=== PATIENT | female | born 1960 | race Caucasian/White ===

== ENCOUNTER 2017-09-23 21:33 | Inpatient (IN) | payer OTHER ==
[~2017-09-23] VITALS: Ht 157.5 cm; Wt 43.9 kg
[~2017-09-23 21:33] MED LIST: MESA250 PO; OMEP20TA PO; PHEN12.5 PR; PRED5TAB PO; ZOFR4TAB3 SL
[2017-09-23 21:34] VITALS: BP 169/79; PULSE 102; RESP 20; TEMP 98.1; O2SAT 100
[2017-09-23] MEDS ORDERED: IOHEXOL 350 MG/ML 10 ML VIAL (for RAD DIAG) IVCONTRAST ONE (21:34)
[2017-09-23] MEDS ORDERED: SODIUM CHLOR 0.9% 1000 ML INJ 1,000 ML IV ONE (22:00)
[2017-09-23] MEDS ORDERED: ONDANSETRON HCL 4 MG/2 ML VIAL IV ONE (22:00)
--- NOTE | 2017-09-23 22:14 | PD ---
HPI Chief Complaint: Abdominal Pain Time Seen by Provider: 21:50 Travel History International Travel<30 days: No Contact w/Intl Traveler<30days: No Traveled to known affect area: No History of Present Illness HPI The patient is a 56 year old female who presents to the [facility] emergency department with a history of abdominal pain that began on and then went away and returned at 2PM on today. Her last meal was at 4 PM. She has had n/v x 5. Her last BM was a small BM earlier today. She has a h/o Crohn' s s/p partial colostomy. Her colorectal surgeon is Dr. Morrow. She has a history of recurrent strictures between the connection of the small intestine and colon s/p dilation last in 2011 or 2012. She reports that the abdominal pain is generalized throughout the abdomen and feels sharp. She reports that the pain is intermittent and is associated with the bloated gassy sensation. On review of systems otherwise, the patient denies having any neck pain, chest pain, shortness of breath, or neurologic symptoms. She reports that today she has had urinary frequency and urgency without dysuria. She reports that over the last 3 days she has had an occasional cough productive of yellow sputum. She reports that today she has had a subjective fever. [facility] Past Medical History Narrative Medical The patient's past medical history is significant for skin cancer, Crohn's disease, arthritis, recurrent small bowel obstructions Arthritis: Yes Cancer: No Cardiovascular Problems: Yes (HEART MURMUR) Chemotherapy: Yes (topical chemo/chest) Diabetes: No Endocrine: No Gastrointestinal Disorders: Yes (chrons) Genitourinary: No Hepatitis: No Hiatal Hernia: No Hypertension: No Immune Disorder: No Implanted Vascular Access Dvce: No Medical other: Yes (CROHNS) Neurologic: No Psychiatric: No Reproductive: No Respiratory: No Immunizations Current: Yes Thyroid Disease: No Tetanus Vaccination: Never Vaccinated Influenza Vaccination: Yes ?: Not Menopausal: Yes Past Surgical History Narrative Surgical The patient's past surgical history is significant for a partial colectomy, cholecystectomy, appendectomy. Abdominal Surgery: Yes (colectomy) Other Surgery: Yes (GALLBLADDER, COLON SURGERY, APPENDECTOMY) Social History Alcohol Use: Yes (1-2 x per week) Tobacco Use: Yes (1/2-1 ppd) Substance Use: No Allergies-Medications (Allergen,Severity, Reaction): Coded Allergies: Sulfa (Sulfonamide Antibiotics) (Unverified Allergy, Mild, 09/23/17) codeine (Unverified Allergy, Mild, 09/23/17) Reported Meds & Prescriptions Reported Meds & Active Scripts Active Phenergan (Promethazine HCl) 12.5 Mg Sup 12.5 Mg AZ Q6H PRN FOR NAUSEA Zofran ODT (Ondansetron HCl) 4 Mg Tab 4 Mg SL Q6H PRN FOR NAUSEA/VOMITING Reported Prednisone 5 Mg Tab 5 Mg PO DIRECTED 40 mg daily taper down by 5 mg every week then stop Omeprazole 20 mg (Omeprazole) 20 Mg Tab 20 Mg PO DIRECTED Pentasa 250 mg (Mesalamine) 250 Mg Cap 200 Mg PO BID Mercaptopurine, Lomotil, Crestor, Hormone supplement. Dr. Michele Dover Review of Systems Except as stated in HPI: all other systems reviewed are Neg General / Constitutional: No: Fever Eyes: No: Visual changes HENT: No: Headaches Cardiovascular: No: Chest Pain or Discomfort Respiratory: No: Shortness of Breath Gastrointestinal: Positive: Nausea, Vomiting, Abdominal Pain, No: Diarrhea, Changes in Bowel Habits Genitourinary: No: Dysuria Musculoskeletal: No: Pain Skin: No Rash Neurologic: No: Weakness Psychiatric: No: Depression Endocrine: No: Polydipsia Hematologic/Lymphatic: No: Easy Bruising Physical Exam Narrative General: The patient is a well-developed well-nourished female in no acute distress. Head and Neck exam: Head is normocephalic atraumatic. Eyes: EOMI, pupils are equal round and reactive to light. Nose: Midline septum with pink mucous membranes Mouth: Dentition unremarkable. Moist mucus membranes. Posterior oropharynx is not erythematous. No tonsillar hypertrophy. Uvula midline. Airway patent. Neck: No palpable lymphadenopathy. No nuchal rigidity. No thyromegaly. Cardiovascular: Regular rate and rhythm without murmurs, gallops, or rubs. Lungs: Clear to auscultation bilaterally. No wheezes, rhonchi, or rales. Abdomen: Soft, with tenderness on palpation that is worse in the midepigastric area and area just above the umbilicus. No other tenderness on palpation of the other quadrants abdomen. No guarding, rebound, or rigidity. Decreased bowel sounds are audible. No tenderness on palpation of McBurney's point. Negative Huerta' s sign. Extremities: No clubbing, cyanosis, or edema. 2+ pulses in all 4 extremities. No calf tenderness on palpation. Back: No costovertebral angle tenderness to palpation. Neurologic Exam: Grossly nonfocal. Skin Exam: No rash noted. Intact skin that is warm and dry. Data Data Last Documented VS Vital Signs Date Time Temp Pulse Resp B/P (MAP) Pulse Ox O2 Delivery O2 Flow Rate FiO2 09/23/17 21:34 98.1 102 20 169/79 (109) 100 Room Air Orders Orders Electrocardiogram (09/23/17 21:53) Complete Blood Count With Diff (09/23/17 21:53) Comprehensive Metabolic Panel (09/23/17 21:53) C-Reactive Protein (Crp) (09/23/17 21:53) Lipase (09/23/17 21:53) Urinalysis - C+S If Indicated (09/23/17 21:53) Westergren Sedimentation Rate (09/23/17 21:53) Chest, Single Ap (09/23/17 21:53) Ct Abd/Pel W Iv Contrast(Rout) (09/23/17 21:53) Iv Access Insert/Monitor (09/23/17 21:53) Ecg Monitoring (09/23/17 21:53) Oximetry (09/23/17 21:53) Ed Urine Pregnancytest Poc (09/23/17 21:53) Sodium Chlor 0.9% 1000 Ml Inj (Ns 1000 M (09/23/17 22:00) Ondansetron Inj (Zofran Inj) (09/23/17 22:00) Ondansetron Odt (Zofran Odt) (09/24/17 00:00) Iohexol 350 Inj (Omnipaque 350 Inj) (09/23/17 21:34) Piperacil-Tazo 3.375 Gm Premix (Zosyn 3. (09/24/17 01:30) Hydromorphone Pf Inj (Dilaudid Pf Inj) (09/24/17 01:30) Admit Order (Ed Use Only) (09/24/17 01:25) Diet Npo (09/24/17 Breakfast) Labs Laboratory Tests Test 09/24/17 00:00 09/24/17 00:02 White Blood Count 14.6 TH/MM3 Red Blood Count 4.12 MIL/MM3 Hemoglobin 14.8 GM/DL Hematocrit 44.5 % Mean Corpuscular Volume 108.0 FL Mean Corpuscular Hemoglobin 36.0 PG Mean Corpuscular Hemoglobin Concent 33.3 % Red Cell Distribution Width 16.5 % Platelet Count 356 TH/MM3 Mean Platelet Volume 9.6 FL Neutrophils (%) (Auto) 80.7 % Lymphocytes (%) (Auto) 11.9 % Monocytes (%) (Auto) 6.5 % Eosinophils (%) (Auto) 0.6 % Basophils (%) (Auto) 0.3 % Neutrophils # (Auto) 11.8 TH/MM3 Lymphocytes # (Auto) 1.7 TH/MM3 Monocytes # (Auto) 0.9 TH/MM3 Eosinophils # (Auto) 0.1 TH/MM3 Basophils # (Auto) 0.0 TH/MM3 CBC Comment DIFF FINAL Differential Comment Erythrocyte Sedimentation Rate 9 mm/hr Blood Urea Nitrogen 15 MG/DL Creatinine 0.76 MG/DL Random Glucose 76 MG/DL Total Protein 6.9 GM/DL Albumin 3.5 GM/DL Calcium Level 10.5 MG/DL Alkaline Phosphatase 94 U/L Aspartate Amino Transf (AST/SGOT) 27 U/L Alanine Aminotransferase (ALT/SGPT) 33 U/L Total Bilirubin 0.6 MG/DL Sodium Level 141 MEQ/L Potassium Level 3.9 MEQ/L Chloride Level 106 MEQ/L Carbon Dioxide Level 28.2 MEQ/L Anion Gap 7 MEQ/L Estimat Glomerular Filtration Rate 79 ML/MIN C-Reactive Protein 1.21 MG/DL Lipase 88 U/L MDM Medical Decision Making Medical Screen Exam Complete: Yes Emergency Medical Condition: Yes Medical Record Reviewed: Yes Differential Diagnosis Recurrent bowel obstruction, versus gastroenteritis, versus viral syndrome versus gastroparesis, versus Crohn's exacerbation Narrative Course During the course of the patients emergency department visit, the patients history, examination, and differential diagnosis were reviewed with the patient. The patient was placed on a manager monitoring with oximetry and frequent blood pressure monitoring. The patient had IV access obtained and blood work sent for analysis. The patient had an ECG done on arrival that shows a sinus rhythm heart rate of 77, no acute ST segment elevation or depression. The patient was initially provided normal saline IV fluids, hydromorphone 0.5 mg IV for pain, Zofran for nausea. The patients laboratory studies were reviewed and remarkable for a white count of 14.6, hemoglobin 14.8, platelets 356 with 80.7 neutrophils, sedimentation rate is 9. CMP is remarkable for a GFR of 79, calcium 10.5, C-reactive protein 1.21, lipase 88 Radiology studies were reviewed and remarkable for CT scan of the abdomen and pelvis that shows a suspected small bowel stricture with dilatation of the mid and distal small bowel with a transition point just proximal to the anastomosis between the small bowel and rectum. The patient's case was discussed with the patient's colorectal surgeon, Dr. Morrow. He did agree to admit the patient for continued evaluation and treatment. The patients results were discussed with the patient, including the plan of care. I explained that further testing and/ or monitoring is indicated based on the patients history, examination, and/ or laboratory findings. Therefore, I recommended admission for additional evaluation. The patient expressed understanding and was agreeable with this plan. The patient was admitted to the hospital in stable condition and sent to a bed under the care of Dr. Morrow. Physician Communication Physician Communication The patient's case including history, pertinent physical examination findings, and laboratory studies were discussed with Dr. Morrow. It was agreed that the patient would be admitted to Dr. Morrow's service. Diagnosis Primary Impression: Small bowel obstruction Admitting Information Admitting Physician Requests: it Ashley Daugherty MD Sep 23, 2017 22:14
--- NOTE | 2017-09-23 22:14 | RADRPT ---
EXAM DATE/TIME: 09/23/2017 22:06 [facility] COMPARISON: No previous studies available for comparison. INDICATIONS : Upper abdominal and lower chest pain. MEDICAL HISTORY : Crohn's disease. Heart murmur. SURGICAL HISTORY : Colon resection. ENCOUNTER: Initial ACUITY: 3 days PAIN SCORE: 5/10 LOCATION: Bilateral upper abdomen and lower chest. FINDINGS: A single view of the chest demonstrates no focal consolidation or effusion. Heart size normal. No pne umothorax. CONCLUSION: No acute disease. Elton Floyd MD on September 23, 2017 at 22:11 Board Certified Radiologist. This report was verified electronically.
[2017-09-24] VITALS (8 sets, daily range): BP systolic 129–162; BP diastolic 58–75; PULSE 69–79; RESP 16–20; TEMP 98–99; O2SAT 93–97
[2017-09-24] MEDS ORDERED: ONDANSETRON ODT 4 MG TAB PO ONE
[2017-09-24 00:14] LABS: AUTOMATED NEUTROPHIL # 11.8 TH/MM3 (1.8-7.7); BASOPHIL % 0.3 % (0.0-2.0); EOSINOPHIL # 0.1 TH/MM3 (0-0.4); EOSINOPHIL % 0.6 % (0.0-4.0); HEMATOCRIT 44.5 % (35.0-46.0); HEMO FLAGS DIFF FINAL; LYMPH % 11.9 % (9.0-44.0); LYMPHOCYTE # 1.7 TH/MM3 (1.0-4.8); MEAN CORPUSCULAR HGB CONC 33.3 % (32.0-36.0); MONO % 6.5 % (0.0-8.0); NEUT % 80.7 % (16.0-70.0); PLATELET COUNT 356 TH/MM3 (150-450); RED BLOOD COUNT 4.12 MIL/MM3 (4.00-5.30); RED CELL DISTRIBUTION WIDTH 16.5 % (11.6-17.2); WHITE BLOOD COUNT 14.6 TH/MM3 (4.0-11.0)
[2017-09-24 00:27] LABS: ALT (GPT) 33 U/L (10-53); ANION GAP 7 MEQ/L (5-15); AST (GOT) 27 U/L (15-37); BICARBONATE 28.2 MEQ/L (21.0-32.0); BLOOD UREA NITROGEN 15 MG/DL (7-18); CHLORIDE 106 MEQ/L (98-107); GLOMERULAR FILTRATION RATE 79 ML/MIN (>89); POTASSIUM 3.9 MEQ/L (3.5-5.1); SODIUM (NA) 141 MEQ/L (136-145)
[2017-09-24 00:29] LABS: ALKALINE PHOSPHATASE 94 U/L (45-117); TOTAL BILIRUBIN ADULT 0.6 MG/DL (0.2-1.0)
--- NOTE | 2017-09-24 01:14 | RADRPT ---
EXAM DATE/TIME: 09/24/2017 00:42 [facility] COMPARISON: CHEST SINGLE AP, September 23, 2017, 22:06. CT ABDOMEN & PELVIS W CONTRAST, December 25, 2011, 6:32. CT ABDOMEN & PELVIS W CONTRAST, December 27, 2015, 5:51. INDICATIONS : Abdomen pain with nausea and vomiting. IV CONTRAST: 70 cc Omnipaque 350 (iohexol) IV ORAL CONTRAST: No oral contrast ingested. RADIATION DOSE: 4.51 CTDIvol (mGy) MEDICAL HISTORY : Cardiovascular disease. Crohns disease. SURGICAL HISTORY : Cholecystectomy. Appendectomy.Colon resection. ENCOUNTER: Initial ACUITY: 1 day PAIN SCALE: 8/10 LOCATION: Bilateral abdomen TECHNIQUE: Volumetric scanning of the abdomen and pelvis was performed. Using automated exposure control and ad justment of the mA and/or kV according to patient size, radiation dose was kept as low as reasonably achievable to obtain optimal diagnostic quality images. DICOM format image data is available electro nically for review and comparison. FINDINGS: LOWER LUNGS: The visualized lower lungs are clear. LIVER: There is mild decreased attenuation to the liver without lesion. There is dilation of the biliary tr ee. The patient is status post cholecystectomy.. SPLEEN: There is a 1.4 cm and nonspecific focal splenic lesion. This hypodense lesion was present on the prio r CT examination. PANCREAS: There are calcifications seen at the pancreatic head and uncinate region. KIDNEYS: There are low density masses seen the kidneys bilaterally measuring 1.5 cm the posterior mid right ki dney and 0.7 cm at the superior lateral left kidney. No hydronephrosis is seen. ADRENAL GLANDS: Within normal limits. VASCULAR: There is no aortic aneurysm. Atherosclerotic calcifications are seen. BOWEL/MESENTERY: The stomach and proximal small bowel are unremarkable. There is dilatation of the mid and distal smal l bowel. There is anastomosis suture in the right lower quadrant. It appears the patient is status po st colectomy with the rectum remaining in place. The anastomosis appears between the small bowel and the upper rectum. There appears to be an area of focal small bowel thickening seen just proximal to t he bowel anastomosis suture concerning for a transition point. ABDOMINAL WALL: Within normal limits. RETROPERITONEUM: There is no lymphadenopathy. BLADDER: No wall thickening or mass. REPRODUCTIVE: Within normal limits. INGUINAL: There is no lymphadenopathy or hernia. MUSCULOSKELETAL: Within normal limits for patient age. CONCLUSION: 1. Suspected small bowel structure with dilatation of the mid and distal small bowel with a transitio n point just proximal to the anastomosis between the small bowel and the rectum. 2. Hepatic steatosis. 3. Biliary duct dilatation likely reflecting a reservoir phenomenon follicle cystectomy. 4. Calcifications of the pancreatic head and uncinate process typically seen with chronic pancreatiti s. 5. Low density masses in the kidneys bilaterally likely related to cysts. 6. Atherosclerotic calcifications seen throughout. Rashawn Pugh MD on September 24, 2017 at 0:57 Board Certified Radiologist. This report was verified electronically.
[2017-09-24] MEDS ORDERED: PIPERACIL-TAZO 3.375 GM PREMIX 50 ML IV ONE (01:30)
[2017-09-24] MEDS ORDERED: HYDROmorphone HCL PF 0.5 MG/0.5 ML SYRINGE IV PUSH ONE (01:30)
[2017-09-24] MEDS ORDERED: ESTR1TAB PO (02:15)
[2017-09-24] MEDS ORDERED: AMBI10TA PO (02:15)
[2017-09-24] MEDS ORDERED: ROSU10 PO (02:15)
[2017-09-24] MEDS ORDERED: MEDR10TA7 PO (02:15)
[2017-09-24] MEDS ORDERED: PRED5TAB PO (02:15)
[2017-09-24] MEDS ORDERED: CYMB30CA PO (02:15)
[2017-09-24] MEDS ORDERED: MESA250 PO (02:15)
[2017-09-24] MEDS ORDERED: LORA-392 PO (02:15)
[2017-09-24] MEDS ORDERED: MERC50TA PO (02:15)
[2017-09-24] MEDS ORDERED: LOMO2.5T PO (02:15)
[2017-09-24] MEDS ORDERED: OMEP20TA93 PO (02:15)
[2017-09-24] MEDS ORDERED: ASPI81TA23 PO (02:16)
[2017-09-24 02:36] LABS: BLOOD, URINE MOD (NEG); COMMENT (UR) CULT NOT INDICATED; CULTURE IF INDICATED CULT NOT INDICATED; GLUCOSE,URINE NEG (NEG); KETONE, URINE TRACE mg/dL (NEG); MUCUS URINE FEW /lpf (OCC); NITRITE,URINE NEG (NEG); SQUAMOUS EPITHELIAL CELL URINE 2 /hpf (0-5); URINE COLOR YELLOW (YELLW/STRAW)
[2017-09-24] MEDS ORDERED: ZOLPIDEM TARTRATE 10 MG TAB PO PRN (03:00)
[2017-09-24] MEDS: D5-LR + KCL 20 MEQ INJ 1,000 ML IV SCH ×3 (04:38→23:06)
[2017-09-24] MEDS: ONDANSETRON HCL 4 MG/2 ML VIAL IV PUSH PRN ×3 (05:51→18:38)
[2017-09-24] MEDS: HYDROmorphone HCL PF 0.5 MG/0.5 ML SYRINGE IV PUSH PRN ×5 (05:51→23:06)
--- NOTE | 2017-09-24 08:30 | EKG ---
Date Performed: 09/23/2017 Time Performed: 23:35:25 PTAGE: 56 years EKG: Sinus rhythm NORMAL ECG PREVIOUS TRACING : 07/02/2010 17.42 No significant change from previous tracing noted. DOCTOR: Kahlil Al Interpretating Date/Time 09/24/2017 08:29:00
[2017-09-24] MEDS: PANTOPRAZOLE SOD 20 MG DELAYED RELEASE TAB PO SCH (08:38)
[2017-09-24] MEDS: ATORVASTATIN 20 MG TAB PO SCH (08:39)
[2017-09-24] MEDS: DULoxetine HCl DR 30 MG CAP PO SCH (08:39)
[2017-09-24] MEDS: ESTRADIOL 1 MG TAB PO SCH (08:40)
[2017-09-24] MEDS: MERCAPTOPURINE 50 MG TAB PO SCH (08:43)
[2017-09-24] MEDS: medroxyPROGESTERone ACETATE 10 MG TAB PO SCH (08:44)
[2017-09-24] MEDS ORDERED: predniSONE 5 MG TAB PO SCH (09:00)
[2017-09-24] MEDS ORDERED: MESALAMINE 250 MG CAP PO SCH (09:00)
[2017-09-24] MEDS: REMOVE OLD PATCH T-DERMAL SCH (10:00)
--- NOTE | 2017-09-24 10:17 | MH ---
cc: COMFORT ACE M.D., JOHN T. MD DATE OF ADMISSION 09/24/2017 CHIEF COMPLAINT Nausea, vomiting and abdominal distension. HISTORY OF PRESENT ILLNESS This patient is well-known to me for the last 25 years. She has had a history of Crohn's colitis. She underwent a subtotal colectomy with an ileal rectal anastomosis by me about 25 years ago. She has done well through that time, but has suffered some mild relapses of her Crohn's disease in the terminal ileum just above the anastomosis causing stenosis of her anastomosis at times requiring dilation with balloon dilation. The last balloon dilation done by me was five years ago. She has not had any since then. She does suffer from intermittent bouts of what sounds like small bowel obstruction every two years or so. This latest episode began the day before Thanksgiving. She went out to dinner for her anniversary and developed abdominal discomfort, bloating and lack of bowel motions. She then had multiple bowel motions and it cleared and she had Thanksgiving dinner and after that developed again some crampy abdominal discomfort, but it mostly cleared until last evening prior to this admission. She became quite bloated unable to move her bowels. She does say that she takes Lomotil two pills a day, but did take an extra one a couple of days ago. She came into the emergency department, underwent a CT scan which showed dilatation of her small bowel proximal to her ileosigmoid or ileorectal anastomosis. There was some thickening of the terminal ileum at that anastomosis. Presently she is not passing any gas or stool. She is mildly distended with mild discomfort not severe. She is not having nausea or vomiting at this time. She was made n.p.o. when she was admitted to the hospital. PAST MEDICAL HISTORY, SOCIAL HISTORY AND FAMILY HISTORY, REVIEW OF SYSTEMS Negative other than the HPI. MEDICATIONS For her Crohn's disease include: 1. Mesalamine specifically Pentasa SR 250 mg twice a day 2. Prednisone 5 mg a day 3. Mercaptopurine 50 mg a day PHYSICAL EXAMINATION GENERAL: A well-developed thin female in no acute distress. SKIN: Warm and dry. HEENT: Extraocular muscles intact. NECK: Supple. CHEST: Clear. CARDIAC: S1-S2 is heard. No murmurs or gallops. ABDOMEN: Soft. She is mildly to moderately distended with some tympany and fluid distension of her small bowel. RECTAL: Digital rectal examination was not done. EXTREMITIES: Range of motion within normal limits. NEUROLOGIC: Grossly normal. IMPRESSION Small bowel obstruction due to her stricture of her anastomosis which may be simply a temporary Crohn's stricture and not a fixed stricture. She has had this multiple times in the past and has been followed by me for 25 years with this. PLAN Initially we are placing her at bowel rest, intravenous fluids. I am going to start her on methylprednisolone 40 mg IV twice daily. I am going to increase her Pentasa up to therapeutic dose which is 1000 mg four times a day and I am going to continue her Mercaptopurine. Also, I am going to plan on doing a flexible sigmoidoscopy tomorrow without of prep to see if I can see the area of her anastomosis with a pediatric scope and possibly use a balloon to dilate this area if necessary. This may all clear on its own with adequate Crohn's treatment. Obviously, the last option is a repeat laparotomy which we will try to avoid as we have done over the last 25 years. MD TAO Montez/ARIE /9:56 AM /10:15 AM
[2017-09-24] MEDS: NICOTINE 21 MG/24 HR PATCH T-DERMAL SCH (10:42)
[2017-09-24] MEDS: methylPREDNISolone SOD SUCC 40 MG/1 ML VIAL IV PUSH SCH ×2 (10:42→21:49)
[2017-09-24] MEDS: MESALAMINE 250 MG CAP PO SCH ×3 (12:25→21:49)
[2017-09-25] VITALS: BP 130/63; PULSE 66; RESP 18; TEMP 97.1; O2SAT 94
[2017-09-25 04:00] VITALS: BP 137/66; PULSE 64; RESP 18; TEMP 96.6; O2SAT 94
[2017-09-25 08:00] VITALS: BP 149/70; PULSE 73; RESP 17; TEMP 96.6; O2SAT 93
[2017-09-25] MEDS: REMOVE OLD PATCH T-DERMAL SCH (08:41)
[2017-09-25] MEDS: NICOTINE 21 MG/24 HR PATCH T-DERMAL SCH (08:41)
[2017-09-25] MEDS: ATORVASTATIN 20 MG TAB PO SCH (08:42)
[2017-09-25] MEDS: medroxyPROGESTERone ACETATE 10 MG TAB PO SCH (08:42)
[2017-09-25] MEDS: MESALAMINE 250 MG CAP PO SCH ×4 (08:42→22:00)
[2017-09-25] MEDS: PANTOPRAZOLE SOD 20 MG DELAYED RELEASE TAB PO SCH (08:42)
[2017-09-25] MEDS: DULoxetine HCl DR 30 MG CAP PO SCH (08:42)
[2017-09-25] MEDS: ESTRADIOL 1 MG TAB PO SCH (08:42)
[2017-09-25] MEDS: HYDROmorphone HCL PF 0.5 MG/0.5 ML SYRINGE IV PUSH PRN ×3 (08:42→22:30)
[2017-09-25] MEDS: methylPREDNISolone SOD SUCC 40 MG/1 ML VIAL IV PUSH SCH ×2 (08:43→22:01)
[2017-09-25] MEDS: D5-LR + KCL 20 MEQ INJ 1,000 ML IV SCH ×2 (08:44→17:21)
[2017-09-25] MEDS: MERCAPTOPURINE 50 MG TAB PO SCH (08:55)
--- NOTE | 2017-09-25 09:35 | RADRPT ---
EXAM DATE/TIME: 09/25/2017 08:57 [facility] COMPARISON: CT ABDOMEN & PELVIS W CONTRAST, September 24, 2017, 0:42. INDICATIONS : Partial bowel obstruction with abdominal pain MEDICAL HISTORY : Crohn's disease. SURGICAL HISTORY : Colon resection. ENCOUNTER: Subsequent ACUITY: 3 days PAIN SCORE: 4/10 LOCATION: Abdomen FINDINGS: There is moderate distention of a segment of fairly featureless bowel over the central abdomen. This is likely proximal colon. Minimal intestinal gas elsewhere. There are is no evidence of pneumoperiton eum. No suspicious calcific densities. There are some atherosclerotic vascular calcifications present . Skeletal structures are intact. CONCLUSION: Mild gaseous distention of what appears to be proximal colon Rashawn Thurman MD on September 25, 2017 at 9:14 Board Certified Radiologist. This report was verified electronically.
[2017-09-25 10:40] LABS: AUTOMATED NEUTROPHIL # 8.1 TH/MM3 (1.8-7.7); BASOPHIL % 0.1 % (0.0-2.0); HEMATOCRIT 40.6 % (35.0-46.0); LYMPH % 20.5 % (9.0-44.0); LYMPHOCYTE # 2.3 TH/MM3 (1.0-4.8); MEAN CELL VOLUME 110.6 FL (80.0-100.0); MEAN CORPUSCULAR HEMOGLOBIN 37.5 PG (27.0-34.0); MEAN CORPUSCULAR HGB CONC 33.9 % (32.0-36.0); MONO % 6.4 % (0.0-8.0); PLATELET COUNT 304 TH/MM3 (150-450); RED BLOOD COUNT 3.67 MIL/MM3 (4.00-5.30); WHITE BLOOD COUNT 11.1 TH/MM3 (4.0-11.0)
[2017-09-25 10:48] LABS: HEMO FLAGS AUTO DIFF
[2017-09-25 10:50] LABS: BICARBONATE 25.6 MEQ/L (21.0-32.0); POTASSIUM 4.6 MEQ/L (3.5-5.1)
[2017-09-25 11:26] LABS: BANDS 13 % (0-6); NEUTROPHIL # MANUAL DIFF 9.1 TH/MM3 (1.8-7.7); POLYS (SEG NEUTROPHILS) 69 % (16-70); WBC DIFF SAMPLE 100
[2017-09-25 11:27] LABS: PLATELET ESTIMATE SMEAR NORMAL (NORMAL); PLATELET MORPHOLOGY NORMAL (NORMAL); SCAN/DIFF FINAL DIFF MANUAL
[2017-09-25 12:00] VITALS: BP 157/71; PULSE 81; RESP 17; TEMP 97; O2SAT 92
[2017-09-25] MEDS ORDERED: LIDOCAINE HCL 1% PF 5 ML SYRINGE OTHER ONE (12:00)
[2017-09-25] MEDS ORDERED: PROPOFOL 200 MG/20 ML AMP IV ONE (12:00)
--- NOTE | 2017-09-25 14:08 | HHI.PR ---
Subjective Remarks Stooling. Less distention. Flex Sig with ? stenosis. Large liquid stool precluding good view. Objective Vital Signs Date Time Temp Pulse Resp B/P (MAP) Pulse Ox O2 Delivery O2 Flow Rate FiO2 09/25/17 13:55 71 18 146/76 (99) 92 09/25/17 13:45 98.5 69 18 142/78 (99) 99 09/25/17 12:00 97.0 81 17 157/71 (99) 92 09/25/17 08:00 96.6 73 17 149/70 (96) 93 09/25/17 04:00 96.6 64 18 137/66 (89) 94 09/25/17 00:00 97.1 66 18 130/63 (85) 94 09/24/17 20:00 98.0 69 18 129/67 (87) 94 09/24/17 16:00 98.0 78 17 145/75 (98) 95 I/O 09/24/17 09/24/17 09/24/17 09/25/17 09/25/17 09/25/17 07:00 15:00 23:00 07:00 15:00 23:00 Intake Total 1050 ml 1542 ml 730 ml Balance 1050 ml 1542 ml 730 ml Intake Oral 0 ml 0 ml IV Total 1050 ml 1542 ml 730 ml # Voids 1 8 0 # Bowel Movements 4 0 Result Diagram: 09/25/1794309/25/17943 Objective Remarks VS-S Abd: softer. Assessment and Plan Assessment and Plan Improving Advance diet and D/C in AM 09/26/17 Rashawn Morrow MD Sep 25, 2017 14:08
--- NOTE | 2017-09-25 14:44 | MR ---
cc: LAYNE MORROW ARUN M.D. DATE: 09/25/2017 PREOPERATIVE DIAGNOSIS 1. History of Crohn disease with subtotal colectomy and ileorectal anastomosis. 2. Small bowel obstruction. POSTOPERATIVE DIAGNOSIS Ileorectal anastomosis with resolving small bowel obstruction. PROCEDURE Flexible sigmoidoscopy and biopsy. ANESTHESIA Monitored anesthesia care SURGEON Dr. Morrow OPERATIVE FINDINGS This patient is well-known to me 25 years ago she had a subtotal colectomy with ileorectal anastomosis. She has intermittent small bowel obstruction the last problem she really had was five years ago when her ileal rectal anastomosis was somewhat narrowed a balloon dilatation was done by me. She came in this time with a couple day history of abdominal bloating and cramping and decreased bowel motions. Prior to this procedure, however, she began having copious amounts of liquid stool. At sigmoidoscopy she was found to have a normal appearing rectum and what appeared to be ileocolic anastomosis with stenosis although I could not be absolutely sure up. I could not get this scope up into this small area and it may well simply be a blind pouch but it did seem inflamed and I went ahead and biopsied it. Since her symptoms were improving no further balloon dilation or attempt at placing a balloon adherent with poor prep was recommended. This scope was eventually withdrawn. The patient our procedure well and left the GI lab in good condition. MD TAO Montez/alaina /1:37 PM /2:34 PM
[2017-09-25 16:00] VITALS: BP 162/74; PULSE 76; RESP 17; TEMP 96.7; O2SAT 92
[2017-09-25] MEDS ORDERED: LACTATED RINGER'S 1000 ML IV PRN (22:45)
[2017-09-25 23:28] VITALS: BP 166/72; PULSE 80; RESP 20; TEMP 97; O2SAT 95
[2017-09-26 02:01] VITALS: BP 165/75; PULSE 62; RESP 20; TEMP 97.3; O2SAT 95
[2017-09-26] MEDS: D5-LR + KCL 20 MEQ INJ 1,000 ML IV SCH (03:14)
--- NOTE | 2017-09-26 06:34 | RADRPT ---
EXAM DATE/TIME: 09/26/2017 06:21 [facility] COMPARISON: CT ABDOMEN & PELVIS W CONTRAST, September 24, 2017, 0:42. ABDOMEN FLAT & UPRIGHT, September 25, 2017, 8:57. INDICATIONS : Follow up small bowel obstruction. MEDICAL HISTORY : Crohn's disease. SURGICAL HISTORY : Colon resection. ENCOUNTER: Subsequent ACUITY: 3 days PAIN SCORE: 0/10 LOCATION: Bilateral abdomen FINDINGS: There is air within distended bowel in the left upper quadrant and the midabdomen. There is a small a mount of air seen within the rectal region. Free air is not seen. The lung bases are clear. CONCLUSION: Persistent dilated bowel in the left upper quadrant mid abdomen, persistent low obstruction is suspec bhavna. Rashawn Pugh MD on September 26, 2017 at 6:30 Board Certified Radiologist. This report was verified electronically.
[2017-09-26] MEDS: MESALAMINE 250 MG CAP PO SCH (07:59)
[2017-09-26 08:00] VITALS: BP 146/76; PULSE 64; RESP 18; TEMP 97; O2SAT 96
[2017-09-26] MEDS: ATORVASTATIN 20 MG TAB PO SCH (08:00)
[2017-09-26] MEDS: REMOVE OLD PATCH T-DERMAL SCH (08:00)
[2017-09-26] MEDS: DULoxetine HCl DR 30 MG CAP PO SCH (08:00)
[2017-09-26] MEDS: ESTRADIOL 1 MG TAB PO SCH (08:00)
[2017-09-26] MEDS: PANTOPRAZOLE SOD 20 MG DELAYED RELEASE TAB PO SCH (08:00)
[2017-09-26] MEDS: NICOTINE 21 MG/24 HR PATCH T-DERMAL SCH (08:00)
[2017-09-26] MEDS: methylPREDNISolone SOD SUCC 40 MG/1 ML VIAL IV PUSH SCH (08:00)
[2017-09-26] MEDS: medroxyPROGESTERone ACETATE 10 MG TAB PO SCH (08:00)
[2017-09-26] MEDS: MERCAPTOPURINE 50 MG TAB PO SCH (08:07)
--- NOTE | 2017-09-26 09:13 | HHI.DCPOC ---
Discharge Care Plan Diagnosis: (1) Small bowel obstruction Your Health Problems Are: Anxiety Appetite Changes Irregular Bowel Function Exercise Tolerance Loss of Movements Goals to Promote Your Health * To prevent worsening of your condition and complications * To maintain your health at the optimal level Directions to Meet Your Goals Take your medications as prescribed Follow your dietary instruction Follow activity as directed Keep your appointments as scheduled Take your immunizations and boosters as scheduled If your symptoms worsen call your PCP, if no PCP go to Urgent Care Center or Emergency Room Smoking is Dangerous to Your Health. Avoid second hand smoke Call the 24-hour hour crisis hotline for domestic abuse at Rashawn Morrow MD Sep 26, 2017 09:13
[2017-09-26] MEDS ORDERED: ALVIMOPAN 12 MG CAPSULE PO ONE (09:15)
[2017-09-26] MEDS: HYDROmorphone HCL PF 0.5 MG/0.5 ML SYRINGE IV PUSH PRN (10:20)
== END 2017-09-26 11:27 | disposition home or self-care (01) | DRG 386 ==
LOC: NEPC 21:33 → NEDA 09-24 01:27 → N07B 09-24 03:52
PROVIDERS: ADMIT Colon & Rectal Surgery; ATTEND Colon & Rectal Surgery
PROC: 0DBP8ZX Excision of Rectum, Via Natural or Artificial Opening Endoscopic, Diagnostic (ICD-10-PCS; principal; 2017-09-25 13:10)
DX: K50.812 Crohn's disease of both small and large intestine with intestinal obstruction (principal); K91.89 Other postprocedural complications and disorders of digestive system; Z90.49 Acquired absence of other specified parts of digestive tract
CPT/HCPCS: 71010; 74020; 74177; 80048; 80053; 81001; 83690; 84703; 85007; 85025; 85027; 85652; 86140; 88305; 93005; 96361; 96374; J1170; J2405; J2543; J2920; J3480; J7030; J7512; Q9967

== ENCOUNTER → 2017-11-09 | Outpatient (CLI) | payer OTHER ==
[~2017-11-09] MED LIST changes: +AMBI10TA PO; +ASPI81TA23 PO; +CHLORHEXIDINE GLUCONATE 2 % 1 PACK (2 CLOTHS) TOPICAL PRN; +CYMB30CA PO; +DEXTROSE 5% IN WATE 1000ML INJ 1,000 ML IV SCH; +ESTR1TAB PO; +LACTATED RINGER'S 1000 ML IV PRN; +LORA-392 PO; +MEDR10TA7 PO; +MERC50TA PO; +METOPROLOL TARTRATE 25 MG TAB PO PRN; -OMEP20TA PO; +OMEP20TA93 PO; -PHEN12.5 PR; +POVIDONE IODINE 5% (ANTISEPSIS KIT) 4 APPLICATIONS EACH NARE PRN; +PRED20 PO; -PRED5TAB PO; +PROPOFOL 200 MG/20 ML AMP IV ONE; +ROSU10 PO; +SODIUM CHLORID 0.9% 500 ML IV PRN; -ZOFR4TAB3 SL
[2017-11-09 12:48] VITALS: BP 135/83; PULSE 86; RESP 16; TEMP 98.9; O2SAT 100
[2017-11-09 15:44] VITALS: TEMP 97.8
[2017-11-09 16:07] VITALS: BP 154/92; PULSE 74; RESP 18; O2SAT 100
--- NOTE | 2017-11-10 14:05 | MR ---
cc: COMFORT ACE M.D., JOHN T. M.D. DATE 11/09/2017 PREOPERATIVE DIAGNOSIS Anastomotic stricture. POSTOPERATIVE DIAGNOSIS Anastomotic stricture. PROCEDURE Flexible sigmoidoscopy with dilation of ileorectal anastomotic stricture. ANESTHESIA Monitored anesthesia care. SURGEON Dr. Morrow ESTIMATED BLOOD LOSS Minimal. OPERATIVE FINDINGS This patient had a subtotal colectomy for Crohn's colitis 26 years ago. She had an ileorectal anastomosis at that time and since that time she has done quite well, although she occasionally has obstruction of this ileorectal anastomosis and has abdominal pain. Five years ago we did a balloon dilation of this short strictured anastomosis and she has done fine since then until recently. She says that since her hospitalization recently though she has done quite well and even feels as if she is doing better with her bowel motions. Today at sigmoidoscopy she was found to have a short stricture, probably 3-4 mm in diameter and it was balloon dilated up to about at first 8.5 mm, then 9.5 mm, then 10.5 mm x2. After doing that I was able to pass the 1-cm gastroscope through the anastomosis and look up in the terminal ileum and the terminal ileum all looked normal. No evidence of any trauma or perforation. This is a short stricture, less than 1-cm in length. OPERATIVE TECHNIQUE The patient was placed on the table in the left lateral position, given intravenous monitored anesthesia care and the gastroscope was introduced through the anal canal into the rectum and the ileorectal anastomosis was clearly seen. There was bilious liquid small bowel effluent from this small strictured anastomosis. The 8.5 to 10.5-mm balloon was placed in the stricture and dilated to 8.5 for 1 minute and then retracted and then dilated to 9.5 and then 10.5 for 1 minute. The balloon was then once again retracted and then replaced and inflated up to 10.5-mm for 1 minute. Once this was done I was able to pass the scope up through the anastomosis, into the terminal ileum at least 15 cm. There was no evidence of any other ileal or Crohn's disease or stricture or ulceration. The only ulceration or stricture was right at the anastomosis and was less than 1 cm in length. The scope was eventually withdrawn. The patient tolerated the procedure well and left the operating room in good condition. MD TAO Montez/SHY /3:24 PM /1:40 PM
--- NOTE | 2017-11-10 14:36 | EKG ---
Date Performed: 11/09/2017 Time Performed: 12:54:22 PTAGE: 56 years EKG: Sinus rhythm . Possible right atrial abnormality Borderline ECG PREVIOUS TRACING : 09/23/2017 23.35 Right atrial abnormality new since prior tracing. DOCTOR: rFan Daugherty Interpretating Date/Time 11/10/2017 14:35:30
== END ==
LOC: HSDC 12:19
PROVIDERS: ATTEND Colon & Rectal Surgery
DX: K56.699 Other intestinal obstruction unspecified as to partial versus complete obstruction (principal); K50.90 Crohn's disease, unspecified, without complications; F17.210 Nicotine dependence, cigarettes, uncomplicated; K62.4 Stenosis of anus and rectum; R94.31 Abnormal electrocardiogram [ECG] [EKG]; Z79.82 Long term (current) use of aspirin; Z90.49 Acquired absence of other specified parts of digestive tract
CPT/HCPCS: 00811; 45340; 93005; C1726